=== PATIENT | female | born 1990 | race American Indian/Alaskan Native ===

== ENCOUNTER 2019-07-23 14:58 | Emergency (ER) | payer OTHER ==
[2019-07-23 16:14] VITALS: BP 141/79
--- NOTE | 2019-07-23 16:14 | Emergency Department Report ---
Blank Doc - Documentation Documentation: 29-year-old female that presents with vaginal bleeding and pelvic cramping. This initial assessment/diagnostic orders/clinical plan/treatment(s) is/are subject to change based on patient's health status, clinical progression and re- assessment by fellow clinical providers in the ED. Further treatment and workup at subsequent clinical providers discretion. Patient/guardians urged not to elope from the ED as their condition may be serious if not clinically assessed and managed. Initial orders include: 1- Patient sent to [facility] for further evaluation and treatment 2- UA 3- labs
[2019-07-23 16:54] LABS: Basophils # (Auto) 0.1 K/mm3 (0.0-0.1); Basophils % (Auto) 1.2 % (0.0-1.8); Eosinophils # (Auto) 0.2 K/mm3 (0.0-0.4); Eosinophils % (Auto) 2.6 % (0.0-4.3); Hematocrit 41.8 % (30.3-42.9); Hemoglobin 13.8 gm/dl (10.1-14.3); Lymphocytes # (Auto) 3.8 K/mm3 (1.2-5.4); Mean Corpuscular HGB Conc 33 % (30-34); Mean Corpuscular Volume 92 fl (79-97); Monocytes # (Auto) 0.4 K/mm3 (0.0-0.8); Monocytes % (Auto) 5.1 % (0.0-7.3); Platelet Count 333 K/mm3 (140-440); Red Blood Count 4.55 M/mm3 (3.65-5.03); Red Cell Distribution Width 12.3 % (13.2-15.2)
[2019-07-23 17:14] LABS: BUN/Creatinine Ratio 9; Blood Urea Nitrogen 9 mg/dL (7-17); Calcium 9.7 mg/dL (8.4-10.2); Hemolysis Index 25
[2019-07-23 17:46] LABS: Bilirubin,Urine NEG (Negative); Blood,Urine LG (Negative); Color,Urine Yellow (Yellow); Mucus,Urine FEW /HPF
[2019-07-23 18:09] LABS: HCG Qualitative,Urine Negative (Negative)
--- NOTE | 2019-07-23 20:14 | Emergency Department Report ---
ED Female HPI - General Chief complaint: Vaginal Bleeding Stated complaint: EXTREME PAIN/N/BLEEDING Time Seen by Provider: 07/23/19 16:13 Source: patient Mode of arrival: Ambulatory Limitations: No Limitations - History of Present Illness Initial comments: Patient is a A5 29-year-old Kos[place] female with no past medical history presents to the ED with complaint of acute onset persistent severe dysmenorrhea with heavy vaginal bleeding for 24 hours. Patient states that the pain is worse than what she has had previously and found to see if there was something else abnormal going on. Patient states that she has an implanted subcutaneous control, Nexplanon, on her left upper arm, and that it is not unusual for her to have irregular menstrual cycle. Patient denies dysuria, urinary frequency and urgency, dizziness, chest pain, shortness of breath, syncope, weakness, fatigue, change in vision, low back pain, diarrhea, nausea and vomiting, fever and chills. MD Complaint: vaginal bleeding, pelvic pain, other (Dysmenorrhea) -: Sudden, hour(s) (24) Location: suprapubic, other (vaginal) Radiation: non-radiating Severity: severe Severity scale (0 -10): 7 Quality: cramping, sharp, aching Consistency: constant Improves with: none Worsens with: none Are you Now?: No Last Menstrual Period: 06/20/19 EDC: 03/26/20 Associated Symptoms: denies other symptoms, vaginal bleeding, abdominal pain, hematuria. denies: vaginal discharge, nausea/vomiting, fever/chills, headaches, loss of appetite, dysuria, rash, seizure, shortness of breath, syncope, weakness, other - Related Data Sexually active: Yes : 7 Para: 2 A: 5 ED Review of Systems ROS: Stated complaint: EXTREME PAIN/N/BLEEDING Other details as noted in HPI Constitutional: denies: chills, fever Eyes: denies: eye pain, eye discharge, vision change ENT: denies: ear pain, throat pain Respiratory: denies: cough, shortness of breath, wheezing Cardiovascular: denies: chest pain, palpitations Endocrine: no symptoms reported Gastrointestinal: abdominal pain (Pelvic pain). denies: nausea, vomiting, diarrhea Genitourinary: abnormal menses (heavy vaginal bleeding). denies: urgency, dysuria, discharge Musculoskeletal: denies: back pain, joint swelling, arthralgia Skin: denies: rash, lesions Neurological: denies: headache, weakness, paresthesias Psychiatric: denies: anxiety, depression Hematological/Lymphatic: denies: easy bleeding, easy bruising ED Past Medical Hx - Past Medical History Previous Medical History?: Yes - Surgical History Past Surgical History?: Yes Additional Surgical History: Tonsilectomy - Social History Smoking Status: Never Smoker ED Physical Exam - General Limitations: No Limitations General appearance: alert, in no apparent distress - Head Head exam: Present: atraumatic, normocephalic - Eye Eye exam: Present: normal appearance, PERRL, EOMI Pupils: Present: normal accommodation - ENT ENT exam: Present: normal exam, normal orophraynx, mucous membranes moist, TM's normal bilaterally, normal external ear exam - Neck Neck exam: Present: normal inspection, full ROM - Respiratory Respiratory exam: Present: normal lung sounds bilaterally. Absent: respiratory distress, wheezes, rales, stridor, chest wall tenderness, accessory muscle use, decreased breath sounds - Cardiovascular Cardiovascular Exam: Present: regular rate, normal rhythm, normal heart sounds. Absent: systolic murmur, diastolic murmur, rubs, gallop - GI/Abdominal GI/Abdominal exam: Present: soft, tenderness (Suprapubic tenderness), normal bowel sounds. Absent: guarding, rebound, hypoactive bowel sounds - Bi-manual exam: Present: other (Deferred, patient declined) - Extremities Exam Extremities exam: Present: normal inspection, full ROM, normal capillary refill - Back Exam Back exam: Present: normal inspection, full ROM. Absent: tenderness, CVA tender ness (R), CVA tenderness (L), muscle spasm - Neurological Exam Neurological exam: Present: alert, oriented X3, CN II-XII intact, normal gait, reflexes normal - Psychiatric Psychiatric exam: Present: normal affect, normal mood - Skin Skin exam: Present: warm, dry, intact, normal color. Absent: rash ED Course Vital Signs 07/23/19 16:12 Temperature 99.2 F Pulse Rate 103 H Respiratory 18 Rate Blood Pressure 141/79 O2 Sat by Pulse 100 Oximetry ED Medical Decision Making - Lab Data Result diagrams: 07/23/19 16:34 07/23/19 16:34 - Medical Decision Making This is a 29-year-old -[place] female who presented to the ED with complaint of severe dysmenorrhea and heavy vaginal bleeding for 24 hours. In the ED, patient is alert and oriented 3 and distention and distress but appears to be in pain. Patient however declined any medications for pain in the ED. Lab test results were reviewed including a urinalysis and the results were nonactionable. Patient was discharged home and advised follow-up with [employer]S [facility]INEER physician or primary care physician in 5-7 days for reevaluation or return to the ED immediately if symptoms get worse. - Differential Diagnosis dysmenorrhea; ; anemia; UTI; Ovarian cysts; Miscarriage Critical care attestation.: If time is entered above; I have spent that time in minutes in the direct care of this critically ill patient, excluding procedure time. ED Disposition Clinical Impression: Metrorrhagia, Dysmenorrhea Disposition: TO HOME OR SELFCARE Is pt being admited?: No Does the pt Need Aspirin: No Condition: Stable Instructions: Dysmenorrhea (ED), Dysfunctional Uterine Bleeding (ED), Menorrhagia (ED) Additional Instructions: Take your regular pain medications with food, drink plenty of fluids and follow- up with your primary care physician or [facility] physician in 7-10 days for reevaluation. Return to the ED immediately if symptoms get worse. Referrals: SHANTAL DIXON MD [Staff Physician] - 3-5 Days Time of Disposition: 20:08 Print Language: SLOVENIAN
== END 2019-07-23 20:20 | disposition home or self-care (01) ==
LOC: ED 14:58
DX: N92.1 Excessive and frequent menstruation with irregular cycle (principal); N94.6 Dysmenorrhea, unspecified; Z90.89 Acquired absence of other organs
CPT/HCPCS: 36415; 80048; 81001; 81025; 85025

== ENCOUNTER 2021-06-18 16:59 | Emergency (ER) | payer BC, MEDICAID ==
[2021-06-18 17:12] VITALS: BP 103/42
[2021-06-18] MEDS ORDERED: SODIUM CHLORIDE 0.9% 1000 ML 1,000 ML IV ONE (20:02)
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
[2021-06-18 20:35] LABS: Basophils % (Auto) 0.4 % (0.0-1.8); Eosinophils # (Auto) 0.1 K/mm3 (0.0-0.4); Eosinophils % (Auto) 0.9 % (0.0-4.3); Hematocrit 33.2 % (30.3-42.9); Lymphocytes # (Auto) 1.9 K/mm3 (1.2-5.4); Lymphocytes % (Auto) 22.9 % (13.4-35.0); Mean Corpuscular HGB Conc 33 % (30-34); Mean Corpuscular Volume 84 fl (79-97); Monocytes # (Auto) 0.5 K/mm3 (0.0-0.8); Monocytes % (Auto) 6.2 % (0.0-7.3); Platelet Count 238 K/mm3 (140-440); Red Blood Count 3.96 M/mm3 (3.65-5.03); Red Cell Distribution Width 15.7 % (13.2-15.2)
[2021-06-18 20:46] LABS: INR 0.95 (0.87-1.13)
[2021-06-18 20:47] LABS: Partial Thromboplastin Time 25.9 Sec. (24.2-36.6)
[2021-06-18 20:50] LABS: Alanine Aminotransferase 8 units/L (7-56); Blood Urea Nitrogen 4 mg/dL (7-17); Calcium 9.5 mg/dL (8.4-10.2); Hemolysis Index 2
[2021-06-18 20:53] LABS: BUN/Creatinine Ratio 8
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
--- NOTE | 2021-06-19 01:26 | Cat Scan Report ---
CTA CHEST WITH IV CONTRAST INDICATION: Acute onset chest pain with dyspnea. female, shielded. TECHNIQUE: Axial CT images were obtained through the chest after injection of 100 mL Omnipaque 350 IV contrast. 3 plane MIP reconstructions were produced. All CT scans at this location are performed using CT dose reduction for ALARA by means of automated exposure control. COMPARISON: None available. FINDINGS: PULMONARY ARTERIES: Tiny filling defect within the left upper lobe segmental artery branch best seen on axial image 143 of series 3 respiratory motion artifact limits the exam. AORTA AND ARTERIES: No acute abnormality. MEDIASTINUM: No mass, lymphadenopathy or other significant abnormality. The heart is normal in size w ithout a pericardial effusion. The trachea and main bronchi are patent and normal in caliber. LUNGS: No suspicious consolidation, nodule or mass. No pneumothorax or pleural effusion. ADDITIONAL FINDINGS: Moderate type I hiatal hernia.. UPPER ABDOMEN: No acute findings. BONES: No significant osseous abnormality. IMPRESSION: 1. Tiny filling defect within a segmental branch of the left upper lobe suspicious for acute pulmonar y thromboembolus, nonocclusive 2. Moderate-sized type I hiatal hernia. CRITICAL RESULT: Acute PTE Time of Discovery: 12:15 AM central time on 06/19/2021 Time of Communication: 12:18 AM central time on 06/19/2021 Licensed Practitioner Receiving Report: Jensen GUTIERREZ Read Back Performed: Yes. Signer Name: Esteban Adams MD Signed: 06/19/2021 1:21 AM Workstation Name: [id number]
[2021-06-19] MEDS ORDERED: ENOXAPARIN 100 MG/1 ML INJ SUB-Q ONE (01:39)
--- NOTE | 2021-06-19 08:35 | Electrocardiograph Report ---
[facility] Test Date: 2021-06-18 Test Time: 19:48:35 Pat Name: MARIBEL ROBERTS Department: Room: Gender: F [employer] Systems Architect: : 1990 Requested By: JASON ROBERTS Order Number: [id number] Reading MD: Remington Jensen Measurements Intervals [place] Rate: 101 P: 66 CA: 129 QRS: 78 QRSD: 126 T: 44 QT: 372 QTc: 483 Interpretive Statements Sinus tachycardia Right bundle branch block No previous ECG available for comparison Electronically Signed On 06-19-2021 8:35:03 EDT by Remington Jensen
== END 2021-06-19 03:00 | disposition home or self-care (01) ==
LOC: ED 16:59
DX: O88.213 Thromboembolism in pregnancy, third trimester (principal); Z3A.33 33 weeks gestation of pregnancy; Z91.19 Patient's noncompliance with other medical treatment and regimen; Z98.890 Other specified postprocedural states
CPT/HCPCS: 36415; 71275; 80053; 83735; 83880; 84484; 85025; 85610; 85730; 93005; 96360; 96372; 99284; J1650; J7030; Q9967

== ENCOUNTER 2021-12-08 05:30 | Emergency (ER) | payer BC, MEDICAID ==
--- NOTE | 2021-12-08 07:19 | Event Note ---
ED Screening Note ED Screening Note: 31 yo comes in with severe headache and lle pain Dx in 07/02 with PE and DVT left brach. artery At the time she was preg and on lovenox Had child 08/02 changed to eloquis Seen at [facility] ElectiveAB 1 Miscarriage 14 No clots prior to 07/02 home meds progesterone and eloquis psh none no cig/etho/drugs pcp none This initial assessment/diagnostic orders/clinical plan/treatment(s) is/are subject to change based on patients health status, clinical progression and re- assessment by fellow clinical providers in the ED. Further treatment and workup at subsequent clinical providers discretion. Patient/guardian urged not to elope from the ED as their condition may be serious if not clinically assessed and managed. Initial orders include: ro dvt ? failed eloquis management
[2021-12-08] MEDS ORDERED: diphenhydrAMINE 50 MG/ML VIAL IV ONE (07:35)
[2021-12-08] MEDS ORDERED: METOCLOPRAMIDE 10 MG/2 ML INJ IV ONE (07:35)
--- NOTE | 2021-12-08 07:45 | Emergency Department Report ---
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 Patient developed left-sided headache behind her eye started at 3 AM. Pain is constant, rated 7/10 intensity, with associated nausea and light sensitivity. No aggravating or alleviating factors. she denies blurry vision, neck pain, vomiting, or focal weakness/numbness. Patient also reports she has had left leg pain since 2 AM. Pain extends from the hip all the way down to the calf and described as a burning pain. Patient states she has been working a lot lately and sitting in the ambulance between calls. No complaints of chest pain or shortness of breath Allergies/Adverse Reactions: Allergies No Known Allergies Allergy (Unverified 04/19/20 13:43) Home Medications: Ambulatory Orders Ibuprofen [Motrin 600 MG tab] 600 mg PO Q8H PRN #14 tablet 04/19/20 Methylergonovine [Methergine] 0.2 mg PO TID 3 Days #9 tablet 04/19/20 Metoclopramide [Reglan] 10 mg PO TID PRN #20 tab 12/08/21 SUMAtriptan [Sumatriptan] 20 mg NS Q2H PRN #2 spray 12/08/21 ED Review of Systems ROS: Stated complaint: LT LEG PAIN/MIGRAINE/NAUSEA Other details as noted in HPI Comment: All other systems reviewed and negative ED Past Medical Hx - Surgical History Additional Surgical History: Tonsilectomy/ - Social History Smoking Status: Never Smoker Substance Use Type: None - Medications Home Medications: Home Medications Medication Instructions Recorded Confirmed Last Taken Type Ibuprofen [Motrin 600 MG tab] 600 mg PO Q8H PRN #14 tablet 04/19/20 Unknown Rx Methylergonovine [Methergine] 0.2 mg PO TID 3 Days #9 tablet 04/19/20 Unknown Rx Metoclopramide [Reglan] 10 mg PO TID PRN #20 tab 12/08/21 Unknown Rx SUMAtriptan [Sumatriptan] 20 mg NS Q2H PRN #2 spray 12/08/21 Unknown Rx ED Physical Exam - General Limitations: No Limitations - Other Other exam information: General: No acute distress Head: Atraumatic Eyes: normal appearance, extraocular movements intact ENT: Moist mucous membranes Neck: Normal appearance, no midline tenderness, no nuchal rigidity Chest: Clear to auscultation bilaterally CV: Regular rate and rhythm Abdomen: Soft, normal bowel sounds, nontender, nondistended, no rebound or guarding Back: Normal inspection Extremity: Normal inspection, full range of motion, pain with straight leg raise rating down to Calf Neuro: Alert O x 3, no facial asymmetry, speech clear, no gross motor sensory deficit, [id number] function at Psych: Appropriate behavior Skin: No rash ED Course Vital Signs 12/08/21 12/08/21 05:35 09:19 Temperature 97.9 F 98.6 F Pulse Rate 84 89 Respiratory 18 20 Rate Blood Pressure 127/80 99/53 Blood Pressure 99/53 [Left] O2 Sat by Pulse 100 100 Oximetry ED Medical Decision Making - Lab Data Result diagrams: 12/08/21 07:35 12/08/21 07:35 Lab Results 12/08/21 12/08/21 12/08/21 Range/Units 07:35 07:35 07:35 WBC 7.2 (4.5-11.0) K/mm3 RBC 4.20 (3.65-5.03) M/mm3 Hgb 12.6 (10.1-14.3) gm/dl Hct 37.7 (30.3-42.9) % MCV 90 (79-97) fl MCH 30 (28-32) pg MCHC 33 (30-34) % RDW 13.2 (13.2-15.2) % Plt Count 371 (140-440) K/mm3 Lymph % (Auto) 42.5 H (13.4-35.0) % Dougherty % (Auto) 4.2 (0.0-7.3) % Eos % (Auto) 3.5 (0.0-4.3) % Baso % (Auto) 1.1 (0.0-1.8) % Lymph # (Auto) 3.1 (1.2-5.4) K/mm3 Dougherty # (Auto) 0.3 (0.0-0.8) K/mm3 Eos # (Auto) 0.3 (0.0-0.4) K/mm3 Baso # (Auto) 0.1 (0.0-0.1) K/mm3 Seg Neutrophils % 48.7 (40.0-70.0) % Seg Neutrophils # 3.5 (1.8-7.7) K/mm3 PT 14.1 (12.2-14.9) Sec. INR 0.98 (0.87-1.13) APTT 32.9 (24.2-36.6) Sec. Sodium 141 (137-145) mmol/L Potassium 3.9 (3.6-5.0) mmol/L Chloride 104.2 (98-107) mmol/L Carbon Dioxide 23 (22-30) mmol/L Anion Gap 18 mmol/L BUN 9 (7-17) mg/dL Creatinine 0.8 (0.6-1.2) mg/dL Estimated GFR > 60 ml/min BUN/Creatinine Ratio 11 % Glucose 86 (65-100) mg/dL Calcium 9.9 (8.4-10.2) mg/dL Total Bilirubin 0.40 (0.1-1.2) mg/dL AST 17 (5-40) units/L ALT 15 (7-56) units/L Alkaline Phosphatase 56 (35-129) units/L Total Protein 7.5 (6.3-8.2) g/dL Albumin 4.6 (3.9-5) g/dL Albumin/Globulin Ratio 1.6 % HCG, Qual (Negative) 12/08/21 Range/Units 07:35 WBC (4.5-11.0) K/mm3 RBC (3.65-5.03) M/mm3 Hgb (10.1-14.3) gm/dl Hct (30.3-42.9) % MCV (79-97) fl MCH (28-32) pg MCHC (30-34) % RDW (13.2-15.2) % Plt Count (140-440) K/mm3 Lymph % (Auto) (13.4-35.0) % Dougherty % (Auto) (0.0-7.3) % Eos % (Auto) (0.0-4.3) % Baso % (Auto) (0.0-1.8) % Lymph # (Auto) (1.2-5.4) K/mm3 Dougherty # (Auto) (0.0-0.8) K/mm3 Eos # (Auto) (0.0-0.4) K/mm3 Baso # (Auto) (0.0-0.1) K/mm3 Seg Neutrophils % (40.0-70.0) % Seg Neutrophils # (1.8-7.7) K/mm3 PT (12.2-14.9) Sec. INR (0.87-1.13) APTT (24.2-36.6) Sec. Sodium (137-145) mmol/L Potassium (3.6-5.0) mmol/L Chloride (98-107) mmol/L Carbon Dioxide (22-30) mmol/L Anion Gap mmol/L BUN (7-17) mg/dL Creatinine (0.6-1.2) mg/dL Estimated GFR ml/min BUN/Creatinine Ratio % Glucose (65-100) mg/dL Calcium (8.4-10.2) mg/dL Total Bilirubin (0.1-1.2) mg/dL AST (5-40) units/L ALT (7-56) units/L Alkaline Phosphatase (35-129) units/L Total Protein (6.3-8.2) g/dL Albumin (3.9-5) g/dL Albumin/Globulin Ratio % HCG, Qual Negative (Negative) - Radiology Data Radiology results: report reviewed DUPLEX DOPPLER LOWER EXTREMITY VEINS, LEFT INDICATION / CLINICAL INFORMATION: pain lle hx dvt. TECHNIQUE: Duplex doppler imaging was performed through the veins of the left lower extremity using venous compression and other maneuvers. COMPARISON: None available. FINDINGS: LEFT COMMON FEMORAL VEIN: Negative. LEFT FEMORAL VEIN: Negative. LEFT POPLITEAL VEIN: Negative. LEFT CALF VEINS: Negative. ADDITIONAL FINDINGS: None. IMPRESSION: 1. No sonographic evidence for DVT in the left lower extremity. CT HEAD WITHOUT CONTRAST INDICATION / CLINICAL INFORMATION: left sided headache, new onset, on eliquis. TECHNIQUE: Axial imaging performed from the skull apex through the skull base without the use of contrast. Sagittal and coronal reformatted images. All CT scans at this location are performed using CT dose reduction for ALARA by means of automated exposure control. COMPARISON: None available. FINDINGS: CEREBRAL PARENCHYMA: No significant abnormality. No acute territorial infarct. HEMORRHAGE: None. EXTRA-AXIAL SPACES: Normal in size and morphology for the patient's age. VENTRICULAR SYSTEM: Normal in size and morphology for the patient's age. MIDLINE SHIFT OR HERNIATION: None. CEREBELLUM / BRAINSTEM: No significant abnormality. CALVARIUM: No significant abnormality. ORBITS: Normal as visualized. PARANASAL SINUSES / MASTOID AIR CELLS: Normal as visualized. SOFT TISSUES of HEAD: No significant abnormality. ADDITIONAL FINDINGS: None. IMPRESSION: No acute intracranial abnormality. - Medical Decision Making pt resents with new onset migraine symptoms. Headache improved with Reglan and Benadryl IV. Decadron provided to prevent rebound symptoms. CT head, labs, and left leg Doppler are unremarkable. Patient to be discharged home with migraine medication and antiemetic Critical Care Time: No Critical care attestation.: If time is entered above; I have spent that time in minutes in the direct care of this critically ill patient, excluding procedure time. ED Disposition Clinical Impression: Migraine, Sciatica Disposition: HOME / SELF CARE / HOMELESS Is pt being admited?: No Does the pt Need Aspirin: No Condition: Stable Instructions: Sciatica, [id number], Migraine Headache Additional Instructions: Take the medication as prescribed. Follow-up with your doctor or doctor/clinic provided. Return if symptoms worsen as indicated by your discharge instructions. Prescriptions: Metoclopramide [Reglan] 10 mg PO TID PRN #20 tab PRN Reason: Nausea And Vomiting SUMAtriptan [Sumatriptan] 20 mg NS Q2H PRN #2 spray PRN Reason: Headache Referrals: PRIMARY CARE, [Primary Care Provider] - 3-5 Days LEO HAHN MD [Staff Physician] - 3-5 Days (Neurolgist) Time of Disposition: 10:19
[2021-12-08 08:03] LABS: Basophils # (Auto) 0.1 K/mm3 (0.0-0.1); Basophils % (Auto) 1.1 % (0.0-1.8); Eosinophils # (Auto) 0.3 K/mm3 (0.0-0.4); Eosinophils % (Auto) 3.5 % (0.0-4.3); Hematocrit 37.7 % (30.3-42.9); Hemoglobin 12.6 gm/dl (10.1-14.3); Lymphocytes # (Auto) 3.1 K/mm3 (1.2-5.4); Lymphocytes % (Auto) 42.5 % (13.4-35.0); Mean Corpuscular HGB Conc 33 % (30-34); Mean Corpuscular Volume 90 fl (79-97); Monocytes # (Auto) 0.3 K/mm3 (0.0-0.8); Monocytes % (Auto) 4.2 % (0.0-7.3); Platelet Count 371 K/mm3 (140-440); Red Cell Distribution Width 13.2 % (13.2-15.2)
[2021-12-08 08:13] LABS: INR 0.98 (0.87-1.13)
[2021-12-08 08:14] LABS: Partial Thromboplastin Time 32.9 Sec. (24.2-36.6)
--- NOTE | 2021-12-08 08:23 | Cat Scan Report ---
CT HEAD WITHOUT CONTRAST INDICATION / CLINICAL INFORMATION: left sided headache, new onset, on eliquis. TECHNIQUE: Axial imaging performed from the skull apex through the skull base without the use of cont rast. Sagittal and coronal reformatted images. All CT scans at this location are performed using CT dose reduction for ALARA by means of automated exposure control. COMPARISON: None available. FINDINGS: CEREBRAL PARENCHYMA: No significant abnormality. No acute territorial infarct. HEMORRHAGE: None. EXTRA-AXIAL SPACES: Normal in size and morphology for the patient's age. VENTRICULAR SYSTEM: Normal in size and morphology for the patient's age. MIDLINE SHIFT OR HERNIATION: None. CEREBELLUM / BRAINSTEM: No significant abnormality. CALVARIUM: No significant abnormality. ORBITS: Normal as visualized. PARANASAL SINUSES / MASTOID AIR CELLS: Normal as visualized. SOFT TISSUES of HEAD: No significant abnormality. ADDITIONAL FINDINGS: None. IMPRESSION: No acute intracranial abnormality. Signer Name: Jama Magdaleno Jr, MD Signed: 12/08/2021 8:19 AM Workstation Name: [id number]
[2021-12-08 08:24] LABS: Alanine Aminotransferase 15 units/L (7-56); Albumin 4.6 g/dL (3.9-5); BUN/Creatinine Ratio 11; Blood Urea Nitrogen 9 mg/dL (7-17); Calcium 9.9 mg/dL (8.4-10.2); Hemolysis Index 32
--- NOTE | 2021-12-08 08:34 | Vascular Lab Report ---
DUPLEX DOPPLER LOWER EXTREMITY VEINS, LEFT INDICATION / CLINICAL INFORMATION: pain lle hx dvt. TECHNIQUE: Duplex doppler imaging was performed through the veins of the left lower extremity using venous compr ession and other maneuvers. COMPARISON: None available. FINDINGS: LEFT COMMON FEMORAL VEIN: Negative. LEFT FEMORAL VEIN: Negative. LEFT POPLITEAL VEIN: Negative. LEFT CALF VEINS: Negative. ADDITIONAL FINDINGS: None. IMPRESSION: 1. No sonographic evidence for DVT in the left lower extremity. Signer Name: Benoit Christine MD Signed: 12/08/2021 8:30 AM Workstation Name: [id number]
[2021-12-08] MEDS ORDERED: dexAMETHasone 20 MG/5 ML VIAL IV ONE (09:01)
[2021-12-08 12:25] VITALS: BP 108/57
--- NOTE | 2021-12-09 14:23 | Electrocardiograph Report ---
[facility] Test Date: 2021-12-08 Test Time: 08:45:18 Pat Name: MARIBEL ROBERTS Department: Room: Gender: F [employer]: TERRI : 1990 Requested By: ADELAIDE LUCAS Order Number: [id number] Reading MD: Prosper Valladares Measurements Intervals [place] Rate: 58 P: 23 CA: 183 QRS: 54 QRSD: 93 T: 10 QT: 386 QTc: 381 Interpretive Statements Sinus bradycardia Compared to ECG 06/18/2021 19:48:35 Right bundle branch block no longer evident Sinus rate has decreased Electronically Signed On 12-09-2021 14:23:16 EDT by Prosper Valladares
== END 2021-12-08 11:00 | disposition home or self-care (01) ==
LOC: ED 05:30
DX: G43.909 Migraine, unspecified, not intractable, without status migrainosus (principal); M54.30 Sciatica, unspecified side; Z98.890 Other specified postprocedural states
CPT/HCPCS: 36415; 70450; 80053; 84703; 85025; 85610; 85730; 93005; 93971; 96374; 96375; 99284; J1100; J1200; J2765